=== PATIENT | female | born 1985 | race Caucasian/White ===

== ENCOUNTER → 2017-09-25 | Outpatient (CLI) | payer OTHER ==
[2017-09-25 10:04] LABS: FREE T4 0.94 NG/DL (0.76-1.46)
[2017-09-30 00:06] LABS: GASTRIN 16 pg/mL (0-115)
[2017-09-30 00:06] LABS: CHROMOGRANIN A <1 nmol/L (0-5); TISSUE TRANSGLUTAMINASE IgA <2 U/mL (0-3)
== END ==
LOC: M LAB 08:08
DX: R10.84 Generalized abdominal pain (principal)

== ENCOUNTER → 2017-10-05 | Outpatient (CLI) | payer OTHER ==
[~2017-10-05] MED LIST: GLUCAGON FOR INJ 1 MG VIAL (J1610) As Ordered; ISOVUE-370 76% 100ML VIAL (Q9967) As Ordered; VoLumen 0.1% SUSPENSION 450ML BOTTLE As Ordered
== END ==
LOC: M RAD 08:21
DX: K59.00 Constipation, unspecified (principal)
CPT/HCPCS: Q9967

== ENCOUNTER 2017-10-15 12:12 | Day surgery (SDC) | payer OTHER ==
[2017-10-15] MEDS: NS 1,000 ML IV (12:30)
[2017-10-15] MEDS ORDERED: PROPOFOL 200 MG/20 ML VIAL As Ordered ×2 (15:01)
== END 2017-10-15 16:05 | disposition home or self-care (01) ==
LOC: M OPP 12:12
DX: K58.2 Mixed irritable bowel syndrome (principal); K64.8 Other hemorrhoids; R19.7 Diarrhea, unspecified; K30 Functional dyspepsia; R11.0 Nausea; R10.9 Unspecified abdominal pain; R07.89 Other chest pain; K62.5 Hemorrhage of anus and rectum; K21.9 Gastro-esophageal reflux disease without esophagitis; Z91.018 Allergy to other foods; Z79.899 Other long term (current) drug therapy
CPT/HCPCS: 45378

== ENCOUNTER → 2018-10-28 | Outpatient (REF) | payer OTHER ==
[~2018-10-28] MED LIST changes: +DICY20TA11 PO; -GLUCAGON FOR INJ 1 MG VIAL (J1610) As Ordered; -ISOVUE-370 76% 100ML VIAL (Q9967) As Ordered; -VoLumen 0.1% SUSPENSION 450ML BOTTLE As Ordered
== END ==
LOC: M SFHCLERA 11:42
PROVIDERS: ATTEND Physician Assistant
DX: R50.9 Fever, unspecified (principal)